=== PATIENT | male | born 1945 | race Hispanic/Latino ===

== ENCOUNTER 2017-08-23 11:23 | Day surgery (SDC) | payer MEDICARE ==
[~2017-08-23 11:23] MED LIST: DECADRON ONE; DILAUDID ONE; DIPRIVAN 10 MG/ML IV ONE; XYLOCAINE MPF 2% ONE; ZOFRAN ONE
[2017-08-23] MEDS ORDERED: NACL BACTERIOSTATIC INFILTRATI ONE (12:41)
[2017-08-23] MEDS ORDERED: ANCEF/STERILE WATER 2 GM/20 ML IV NR (13:00)
--- NOTE | 2017-08-23 13:39 | Anesthesia Day of Surgery ---
Anesthesia Day of Surgery - Day of Surgery Patient Examined: Yes Patient H&P Reviewed: Yes Patient is NPO: Yes
--- NOTE | 2017-08-23 13:39 | Anesthesia Consultation ---
Anesthesia Consult and Med Hx Date of service: 08/23/17 - Airway Anesthetic Teeth Evaluation: Good ROM Head & Neck: Adequate Mental/Hyoid Distance: Adequate Mallampati Class: Class II Intubation Access Assessment: Good - Pulmonary Exam CTA: Yes - Cardiac Exam Cardiac Exam: RRR - Pre-Operative Health Status ASA Pre-Surgery Classification: ASA2 Proposed Anesthetic Plan: General - Pulmonary Hx Smoking: Yes (STOPPED X 40 YRS- 1 PPD X 20 YRS) Hx Sleep Apnea: (JUANI PRE SCREEN HIGH RISK) - Cardiovascular System Hx Hypertension: Yes (X 15 YRS) - Central Nervous System Hx Psychiatric Problems: Yes (H/O panic attacks, of effexor) - Other Systems Hx Alcohol Use: Yes (2-3 GLASSES OF WINE DAILY) Hx Cancer: No
[2017-08-23] MEDS ORDERED: DILAUDID IV PRN (13:41)
[2017-08-23] MEDS ORDERED: ZOFRAN IV PRN (13:41)
[2017-08-23] MEDS ORDERED: PERCOCET 5/325 PO PRN (13:41)
[2017-08-23] MEDS ORDERED: VERSED IV NR (14:00)
[2017-08-23] MEDS ORDERED: LACTATED RINGERS 1,000 ML IV SCH (14:00)
[2017-08-23] MEDS ORDERED: PEPCID IV NR (14:00)
--- NOTE | 2017-08-23 15:30 | Short Stay Summary ---
Short Stay Documentation Date of service: 08/23/17 - History H&P: obtained from office - Allergies and Medications Current Medications: Allergies No Known Allergies Allergy (Verified 08/22/17 12:18) Home Medications Medication Instructions Recorded Confirmed Last Taken Type Doxazosin [Cardura] 4 mg PO QDAY 08/22/17 08/22/17 08/23/17 07:45 History Lisinopril [Zestril TAB] 10 mg PO BID 08/22/17 08/22/17 08/23/17 07:45 History Venlafaxine [Effexor] 75 mg PO BID 08/22/17 08/23/17 08/22/17 22:00 History Active Medications Cefazolin Sodium (Ancef/Sterile Water 2 Gm/20 Ml) 2 gm IV PREOP NR Stop: 08/23/17 23:59 Famotidine (Pepcid) 20 mg IV PREOP NR Stop: 08/23/17 23:59 Last Admin: 08/23/17 14:16 Dose: 20 mg Hydromorphone HCl (Dilaudid) 0.5 mg IV Q10MIN PRN PRN Reason: Pain , Severe (7-10) Stop: 08/23/17 23:59 Lactated Ringer's (Lactated Ringers) 1,000 mls @ 100 mls/hr IV DIRECT GIOVANNA Last Admin: 08/23/17 14:14 Dose: 100 mls/hr Midazolam HCl (Versed) 2 mg IV PREOP NR Stop: 08/23/17 23:59 Last Admin: 08/23/17 14:15 Dose: 2 mg - Brief post op/procedure progress note Date of procedure: 08/23/17 Pre-op diagnosis: left kidney stone, s/p stent Post-op diagnosis: same Procedure: left eswl Anesthesia: GETA Surgeon: HIRA SUTTON Estimated blood loss: none Pathology: none Condition: stable - Hospital course Hospital course: norco & post op info on chart - Disposition Condition at discharge: Stable Disposition: DC-01 TO HOME OR SELFCARE Short Stay Discharge Plan Follow up with: PRIMARY CARE, [Primary Care Provider] - 7 Days
--- NOTE | 2017-08-23 15:43 | Post Anesthesia Evaluation ---
- Post Anesthesia Evaluation Patient Participated: Yes Airway Patent: Yes Stable Respiratory Function: Yes Nausea/Vomiting: No Temp > 96.8F: Yes Pain Manageable: Yes Adequeate Hydration: Yes Anesthesia Complications: No
--- NOTE | 2017-08-23 15:43 | Operative Report ---
PREOPERATIVE DIAGNOSIS: Left renal stone, status post stent placement. POSTOPERATIVE DIAGNOSIS: Left renal stone, status post stent placement. PROCEDURE: Extracorporeal shock wave lithotripsy. SURGEON: Shree Sanchez MD ANESTHESIA: General. ESTIMATED BLOOD LOSS: Minimal. FLUIDS: Crystalloid. COMPLICATIONS: No complications. INDICATIONS: This patient is a 71-year-old gentleman seen by Dr. Maynard in the office with the diagnosis of left kidney stone. He had a stent placement, presents now for lithotripsy. Risks, benefits, and complications were explained. DESCRIPTION OF PROCEDURE: The patient was taken to the operative suite, placed in a supine position. After adequate general anesthesia, his 8 mm stone was localized in 2 planes using fluoroscopy. Extracorporal shock wave lithotripsy was administered in maximum 2500 shocks. Renal pause after 200 shocks was performed. Adequate fragmentation could be appreciated. He tolerated the procedure well. He was extubated, taken to recovery room. He will go home on Percocet and follow up in the office. JOB# [id number] [facility]
[2017-08-23 16:48] VITALS: BP 127/92
== END 2017-08-23 16:45 | disposition home or self-care (01) ==
LOC: OR 11:23
PROVIDERS: ATTEND Urology
DX: N20.0 Calculus of kidney (principal); I10 Essential (primary) hypertension; F41.0 Panic disorder [episodic paroxysmal anxiety]; Z72.89 Other problems related to lifestyle; Z87.891 Personal history of nicotine dependence; Z98.890 Other specified postprocedural states; Z79.899 Other long term (current) drug therapy
CPT/HCPCS: 50590; J0690; J1100; J1170; J2250; J2405; J2704; J7120